=== PATIENT | male | born 1960 | race Caucasian/White ===

== ENCOUNTER 2023-06-07 13:00 | Emergency (ER) | payer BC, SELFPAY ==
[2023-06-07] VITALS (9 sets, daily range): BP systolic 111–127; BP diastolic 70–76; PULSE 48–62; RESP 13–24; TEMP 36.7; O2SAT 95–97; BMI 26.0
--- NOTE | 2023-06-07 13:18 | ECG_ITS ---
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
--- NOTE | 2023-06-07 14:07 | ED_ITS ---
HPI - Abdominal Pain General Chief Complaint: Chest Pain Stated Complaint: PAIN UP IN CHEST R SIDE-FELT LIKE BALL DROPPING Time Seen by Provider: 06/07/23 13:17 Source: patient and family Source comment: putting seatbelt on and felt sharp pain to the right lower rib area. then he felt a 'drop' and pain is now in the lower rib area and upper right abd. not sharp any more, just aching Mode of arrival: walk-in Limitations: no limitations History of Present Illness HPI narrative: patient is a 62-year-old male who presents to the emergency department for the evaluation of right upper quadrant pain radiating to the right side of the chest that he developed while putting his seatbelt over his right side earlier today. He states he had an intense pain in the right upper quadrant that radiated up to the right side of the chest but the intensity of the pain has subsided and now he reports only a mild aching in the right upper quadrant under the ribs. He denies nicolasa chest pain, shortness of breath, cough, congestion, fevers. He has had no vomiting or diarrhea. He denies any direct injury to the area. Related Data Home Medications Medication Instructions Recorded Confirmed albuterol sulfate 2.5 mg/3 mL mg 06/07/23 (0.083 %) solution for nebulization amoxicillin 500 mg capsule mg 06/07/23 gabapentin 300 mg capsule mg 06/07/23 Allergies Allergy/AdvReac Type Severity Reaction Status Date / Time codeine Allergy Severe Muscle Pain Verified 06/07/23 13:25 Review of Systems ROS Constitutional Denies: fever or chills Ears, nose, mouth, and throat Denies: throat pain Cardiovascular Reports: chest pain Respiratory Denies: shortness of breath or cough Gastrointestinal Reports: abdominal pain; Denies: nausea or vomiting Genitourinary Denies: painful urination Musculoskeletal Denies: back pain Neurological Denies: headache Exam Narrative Exam Narrative: Gen.: Awake, alert, in no distress Head: Normocephalic, atraumatic ENT: Moist mucous membranes Respiratory: No respiratory distress, lungs clear bilaterally Cardio: Regular rate and rhythm Gastrointestinal: Abdomen is soft, nondistended and nontender to palpation Extremities: Moves extremities equally Psych: Normal mood and affect Neuro: No focal neuro deficit Skin: Warm, dry, intact Constitutional Vital Signs, click to edit/add: Last Vital Signs Temp 98.0 F 08/31/23 13:15 Pulse 48 L 06/07/23 14:50 Resp 20 06/07/23 14:50 BP 127/76 06/07/23 14:32 Pulse Ox 96 06/07/23 14:50 O2 Del Method Room Air 06/07/23 13:15 Course Vital Signs Vital signs: Vital Signs Temperature 98.0 F 06/07/23 13:15 Pulse Rate 62 06/07/23 13:15 Respiratory Rate 20 06/07/23 13:15 Blood Pressure 111/70 06/07/23 13:15 Pulse Oximetry 95 06/07/23 13:15 Oxygen Delivery Method Room Air 06/07/23 13:15 Temperature 98.0 F 06/07/23 13:15 Pulse Rate 48 L 06/07/23 14:50 Respiratory Rate 20 06/07/23 14:50 Blood Pressure 127/76 06/07/23 14:32 Pulse Oximetry 96 06/07/23 14:50 Oxygen Delivery Method Room Air 06/07/23 13:15 MDM - Abdominal Pain MDM Narrative Medical decision making narrative: patient declined any medications for pain. His lab studies, EKG are all within normal limits. He was sent for abdominal x-rays and chest x-ray. This shows dilated bowel suggestive of a partial small bowel obstruction. I discussed these findings with the patient and his at bedside. Patient has no significant pain in the Emergency Room, he has had no vomiting. I strongly recommended that we send the patient back to CT for a CT of the abdomen and pelvis with IV and oral contrast to rule out a small bowel obstruction. The patient does not wish to have this testing done and would like to be discharged from the Emergency Room, he states he is feeling well and does not want to stay for any additional testing. I made him aware of the risks of not having a concrete diagnosis and not being able to rule out a bowel obstruction, he understands and would like to be discharged. He will follow a clear liquid diet, follow closely with his PCP. He verbalizes understanding that he should return to the emergency department if he develops worsening pain, vomiting, decreased bowel movements, fevers or any other new/worsening symptoms. He understands he can return to the emergency department at any time. His at bedside is in agreement with this treatment plan, she states she will encourage the patient to return if things are not improving at home. Medical Records Attestation: I reviewed the patient's medical records. Lab Data Attestation: I reviewed the patient's lab results. Labs: Lab Results 06/07/23 Range/Units 14:05 WBC 7.5 (4.0-11.0) 10^3/uL RBC 4.91 (4.70-6.10) 10^6/uL Hgb 14.7 (14.0-18.0) g/dL Hct 45.1 (42.0-54.0) % MCV 91.9 (80.0-94.0) fL MCH 29.9 (25.9-34.0) pg MCHC 32.6 (29.9-35.2) g/dL RDW 13.9 (11.0-15.0) % Plt Count 345 (150-450) 10^3/uL MPV 8.3 L (9.5-13.5) fL Neut % (Auto) 49.4 (43.0-75.0) % Lymph % (Auto) 36.4 (20.5-60.0) % [place] % (Auto) 9.8 (1.7-12.0) % Eos % (Auto) 3.3 (0.9-7.0) % Baso % (Auto) 0.7 (0.2-2.0) % Neut # (Auto) 3.7 (1.4-6.5) 10^3/uL Lymph # (Auto) 2.7 (1.2-3.8) 10^3/uL [place] # (Auto) 0.7 (0.3-0.8) 10^3/uL Eos # (Auto) 0.3 (0.0-0.7) 10^3/uL Baso # (Auto) 0.1 (0.0-0.1) 10^3/uL Abs Immat Gran (auto) 0.03 (0.00-0.03) 10^3/uL Imm/Tot Granulo (auto) 0.4 (0.0-0.5) % Sodium 137 (136-145) mmol/L Potassium 4.1 (3.5-5.1) mmol/L Chloride 105 (98-107) mmol/L Carbon Dioxide 26.3 (21.0-32.0) mmol/L Anion Gap 9.8 BUN 10.0 (7.0-18.0) mg/dL Creatinine 1.06 (0.70-1.30) mg/dL Est GFR ( Amer) >60 (>=60) Est GFR (Non-Af Amer) >60 (>=60) BUN/Creatinine Ratio 9.4 Glucose 93 (74-106) mg/dL Lactate 0.7 (0.4-2.0) mmol/L Calcium 8.6 (8.5-10.1) mg/dL Total Bilirubin 0.4 (0.2-1.0) mg/dL AST 16 (15-37) U/L ALT 19 (16-63) U/L Alkaline Phosphatase 60 (46-116) U/L Troponin I High Sens 8.3 (4.0-76.1) pg/mL Total Protein 7.3 (6.4-8.2) g/dL Albumin 3.9 (3.4-5.0) g/dL Globulin 3.4 g/dL Albumin/Globulin Ratio 1.1 Lipase 138.0 (73.0-393.0) U/L Imaging Data Abdominal x-ray: Attestation: I have reviewed the pertinent imaging results. Radiologist's impression: Procedure: XR acute abdomen series XR acute abdomen series, 06/07/2023 3:06 PM EDT, [facility]001 INDICATION: Abdominal pain COMPARISON: Chest radiograph from 07/10/2022. TECHNIQUE: Two views of the abdomen obtained. A single view of the chest. FINDINGS: The cardiomediastinal silhouette is within normal limits. The lungs are clear. There is no evidence of pneumothorax or pleural effusion. Mild amount of gas is seen within several mildly dilated multiple bowel with a few air-fluid levels. Gas and stool are seen within the colon. No suspicious calcifications are projected over the kidneys, ureters or bladder. No pneumatosis or free air is seen. The osseous and surrounding soft tissue structures appear within normal limits. IMPRESSION: Abnormal bowel gas pattern suggestive of partial small bowel obstruction. No pneumatosis or free air is seen. No acute pulmonary process is identified. Electronically authenticated by: DOROTEO CASTILLO Date: 06/07/2023 15:47 ECG Data Attestation: I personally reviewed and interpreted this ECG as follows: (normal sinus rhythm at a rate of fifty-one, no acute ST elevation or ectopy. EKG reviewed by attending physician) ECG interpretation date: 06/07/23 ECG interpretation time: 14:20 Discharge Plan Discharge Chief Complaint: Chest Pain Clinical Impression: Abdominal pain Patient Disposition: Home, Self-Care Time of Disposition Decision: 16:07 Condition: Good Prescriptions / Home Meds: No Action amoxicillin 500 mg capsule albuterol sulfate 2.5 mg /3 mL (0.083 %) solution for nebulization gabapentin 300 mg capsule Instructions: Abdominal Pain (ED), Bowel Obstruction (ED) Additional Instructions: If you have worsening pain, vomiting or fevers - you need to be evaluated, ple ase return to the emergency room Stand Alone Forms: Portal Instructions Referrals: CIELO SMITH [Primary Care Provider] - 1 week
[2023-06-07 14:25] LABS: Basophils Absolute Auto 0.1 10^3/uL (0.0-0.1); Basophils Percent Auto 0.7 % (0.2-2.0); Eosinophils Absolute Auto 0.3 10^3/uL (0.0-0.7); Eosinophils Percent Auto 3.3 % (0.9-7.0); Hematocrit 45.1 % (42.0-54.0); Hemoglobin 14.7 g/dL (14.0-18.0); Immature Granulocytes Abs Auto 0.03 10^3/uL (0.00-0.03); Immature Granulocytes Pct Auto 0.4 % (0.0-0.5); Lymphocytes Absolute Auto 2.7 10^3/uL (1.2-3.8); Lymphocytes Percent Auto 36.4 % (20.5-60.0); Mean Corpuscular HGB Conc 32.6 g/dL (29.9-35.2); Mean Corpuscular Hemoglobin 29.9 pg (25.9-34.0); Mean Corpuscular Volume 91.9 fL (80.0-94.0); Mean Platelet Volume 8.3 fL (9.5-13.5); Monocytes Absolute Auto 0.7 10^3/uL (0.3-0.8); Monocytes Percent Auto 9.8 % (1.7-12.0); Neutrophils Absolute Auto 3.7 10^3/uL (1.4-6.5); Neutrophils Percent Auto 49.4 % (43.0-75.0); Platelet Count 345 10^3/uL (150-450); Red Blood Count 4.91 10^6/uL (4.70-6.10); Red Cell Distribution Width 13.9 % (11.0-15.0); White Blood Count 7.5 10^3/uL (4.0-11.0)
[2023-06-07] MEDS: 0.9 % SODIUM CHLORIDE 1,000 ML 999 ML IV (14:28)
[2023-06-07 14:38] LABS: Alanine Aminotransferase 19 U/L (16-63); Albumin Globulin Ratio 1.1; Albumin Level 3.9 g/dL (3.4-5.0); Alkaline Phosphatase 60 U/L (46-116); Anion Gap 9.8; Aspartate Amino Transferase 16 U/L (15-37); BUN Creatinine Ratio 9.4; Bilirubin Total 0.4 mg/dL (0.2-1.0); Calcium 8.6 mg/dL (8.5-10.1); Carbon Dioxide 26.3 mmol/L (21.0-32.0); Chloride 105 mmol/L (98-107); Estimated GFR (African America >60 (>=60); Estimated GFR (Non-African Ame >60 (>=60); Globulin 3.4 g/dL; Glucose 93 mg/dL (74-106); Lactate/Lactic Acid 0.7 mmol/L (0.4-2.0); Potassium 4.1 mmol/L (3.5-5.1); Sodium 137 mmol/L (136-145); Total Protein 7.3 g/dL (6.4-8.2); Troponin I High Sensitivity 8.3 pg/mL (4.0-76.1)
--- NOTE | 2023-06-07 15:01 | XR_ITS ---
The [address] [address] Patient Name: CRISTY GILLIS MRN: [id number] date: 1960 Sex: M Assigned Patient Location: ER Current Patient Location: ER Accession/Order Number: [id number] Exam Date: 06/07/2023 15:06 Report Date: 06/07/2023 15:47 At the request of: NICKO GONSALEZ Procedure: XR acute abdomen series XR acute abdomen series, 06/07/2023 3:06 PM EDT, [facility]001 INDICATION: Abdominal pain COMPARISON: Chest radiograph from 07/10/2022. TECHNIQUE: Two views of the abdomen obtained. A single view of the chest. FINDINGS: The cardiomediastinal silhouette is within normal limits. The lungs are clear. There is no evidence of pneumothorax or pleural effusion. Mild amount of gas is seen within several mildly dilated multiple bowel with a few air-fluid levels. Gas and stool are seen within the colon. No suspicious calcifications are projected over the kidneys, ureters or bladder. No pneumatosis or free air is seen. The osseous and surrounding soft tissue structures appear within normal limits. XR/XR acute abdomen series IMPRESSION: Abnormal bowel gas pattern suggestive of partial small bowel obstruction. No pneumatosis or free air is seen. No acute pulmonary process is identified. Electronically authenticated by: DOROTEO CASTILLO Date: 06/07/2023 15:47
== END 2023-06-07 16:23 | disposition home or self-care (01) ==
PROVIDERS: Physician Assistant; Emergency Provider Emergency Medicine; PCP Family Medicine
DX: R10.9 Unspecified abdominal pain (principal); Z79.899 Other long term (current) drug therapy
CPT/HCPCS: 36415; 74022; 80053; 83605; 83690; 84484; 85025; 93005; 99285